=== PATIENT | male | born 1940 | race Caucasian/White ===

== ENCOUNTER 2017-06-27 01:11 | Emergency (ER) | payer MEDICARE, MEDICAID ==
[~2017-06-27 01:11] MED LIST: ASPI-605 PO; ATOR80TA PO; BENA40TA2 PO; BLOO-129 IN; DOCU250C30 PO; ERGO500014 PO; ESCI10TA PO; ESOM40CA PO; EZET10TA14 PO; FLUT12AE15 IH; INSU100V7 SQ; KETO5DRO83 EACHEYE; METO5SOL20 PO; OMEG1CAP55 PO; PRED5DRO17 EACHEYE; SOLI5TAB2 PO; TAMS-12 PO
--- NOTE | 2017-06-27 03:39 | NUR ---
ER MD ROJO AWARE OF BP VS, OK TO D/C.
[2017-06-27 03:41] VITALS: BP 178/89
== END 2017-06-27 03:43 | disposition home or self-care (01) ==
LOC: ER 01:14
DX: R04.0 Epistaxis (principal); E11.9 Type 2 diabetes mellitus without complications; E78.5 Hyperlipidemia, unspecified; F32.9 Major depressive disorder, single episode, unspecified; I10 Essential (primary) hypertension; I25.10 Atherosclerotic heart disease of native coronary artery without angina pectoris; N40.0 Benign prostatic hyperplasia without lower urinary tract symptoms; Z79.82 Long term (current) use of aspirin; Z79.4 Long term (current) use of insulin
CPT/HCPCS: A4606; Z7610

== ENCOUNTER 2018-09-15 08:29 | Inpatient (IN) | payer MEDICARE, MEDICAID ==
[~2018-09-15] VITALS: Ht 167.6 cm; Wt 68.0 kg
[~2018-09-15 08:29] MED LIST changes: -BENA40TA2 PO; +BENA40TA8 PO
[2018-09-15 08:49] LABS: BASOPHILS % (AUTO) 0.2 % (0.0-2.0); EOSINOPHILS % (AUTO) 1.4 % (0.0-6.0); HEMATOCRIT 41 % (39-51); HEMOGLOBIN 13.8 g/dL (13.5-17.5); LYMPHOCYTES # (AUTO) 0.9 /CMM (0.8-4.8); LYMPHOCYTES % (AUTO) 6.4 % (20.0-44.0); MEAN CORPUSCULAR HGB CONC 34 g/dl (31.0-36.0); MEAN CORPUSCULAR VOLUME 88 fL (80-96); MONOCYTES # (AUTO) 0.7 /CMM (0.1-1.30); MONOCYTES % (AUTO) 5.4 % (2.0-12.0); NEUTROPHILS # (AUTO) 11.6 /CMM (1.8-8.9); NEUTROPHILS % (AUTO) 86.6 % (43.0-81.0); PLATELET COUNT (AUTO) 222 /CMM (150-450); RED BLOOD CELL COUNT(AUTO) 4.64 MIL/uL (4.5-6.0); WHITE BLOOD COUNT (AUTO) 13.3 K/uL (4.3-11.0)
--- NOTE | 2018-09-15 08:50 | NUR ---
patient presented to the ER c/o altered than usuall and generalized weakness. on room air, breathing evenly and unlabored. connected to the monitor and pulse ox. kept comfortable, will continue to monitor accordingly.
[2018-09-15] MEDS ORDERED: IV NS 0.9% 500 ML BAG IV ONE (09:00)
[2018-09-15] MEDS ORDERED: CEFTRIAXONE 1GM BAG (ER ONLY) 1 GM/50 ML PIGGYBACK IV ONE (09:00)
[2018-09-15] MEDS ORDERED: CEFTRIAXONE 1GM BAG (ER ONLY) 50 ML IV ONE (09:01)
--- NOTE | 2018-09-15 09:04 | NUR ---
YACHT HAND/MED RECON PATIENT AND FAMILY UNABLE TO PROVIDE UPDATED INFO RE: HOME MEDICATION. PHARAMACY OF CHOICE IS CLOSED TODAY. FAMILY WILL BRING MEDICATION SUPPLY FROM HOME LATER.
[2018-09-15 09:15] LABS: APPEARANCE,URINE Clear (CLEAR); BILIRUBIN,URINE Negative (NEGATIVE); BLOOD, URINE Small Ery/uL (NEGATIVE); COLOR,URINE Yellow (YELLOW); KETONES,URINE 40 (NEGATIVE); LEUKOCYTE ESTERASE ,URINE Negative (NEGATIVE); NITRITE, URINE Negative (NEGATIVE); PROTEIN,URINE 100 mg/dl (NEGATIVE); UGLUCOSE 100 MG/DL mg/dL (NEGATIVE); UROBILINOGEN,URINE 0.2 EU/dL (0.2)
[2018-09-15 09:20] LABS: CALCIUM, SERUM 8.7 mg/dL (8.5-10.1); CARBON DIOXIDE 27 mmol/L (21-32); CHLORIDE 98 mmol/L (98-107); CREATININE 0.8 mg/dL (0.6-1.3); GLUCOSE 207 mg/dL (74-106); POTASSIUM 3.8 mmol/L (3.5-5.1); SODIUM SERUM 133 mmol/L (136-145); UREA NITROGEN, BLOOD 18 mg/dL (7-18)
[2018-09-15 09:22] LABS: BACTERIA,URINE Rare /HPF (None Seen); SQUAMOUS EPITHELIAL CELL,UR Few /HPF (None Seen); WBC,URINE NONE SEEN /HPF (0-3)
--- NOTE | 2018-09-15 09:22 | NUR ---
REMA AYON NP ON-CALL. AWAITING FOR CALL BACK.
[2018-09-15 09:26] LABS: ALANINE AMINOTRANSFERASE 21 U/L (12-78); ALBUMIN 3.3 g/dL (3.4-5.0); ALKALINE PHOSPHATASE 98 U/L (46-116); ASPARTATE AMINOTRANSFERASE 13 U/L (15-37); BILIRUBIN,DIRECT 0.2 mg/dL (0.0-0.2); TOTAL PROTEIN, SERUM 7.3 g/dL (6.4-8.2)
--- NOTE | 2018-09-15 10:00 | NUR ---
PATIENT GOING TO ROOM 104
[2018-09-15] MEDS ORDERED: MAGNESIUM HYDROXIDE 30 ML UDC PO PRN (10:30)
[2018-09-15] MEDS ORDERED: MAG HYDROX/AL HYDROX/SIMETH 30 ML UDC PO PRN (10:30)
[2018-09-15] MEDS ORDERED: ZOLPIDEM TARTRATE 5 MG TABLET PO PRN (10:30)
[2018-09-15] MEDS ORDERED: ONDANSETRON HCL/PF 4 MG/2 ML VIAL IVP PRN (10:30)
[2018-09-15] MEDS ORDERED: CLONIDINE HCL 0.1 MG TABLET PO PRN (10:30)
[2018-09-15] MEDS ORDERED: Z GUARD REMEDY 2 OZ OINT TP PRN (10:30)
[2018-09-15] MEDS ORDERED: ACETAMINOPHEN 325 MG TABLET PO PRN ×2 (10:30→11:30)
[2018-09-15] MEDS ORDERED: DEXTROSE 50%-WATER 50 ML DISP.SYRIN IV PRN (10:30)
[2018-09-15] MEDS ORDERED: HYDROCODONE/APAP 5/325MG 1 EACH TABLET PO PRN (10:30)
[2018-09-15] MEDS ORDERED: MORPHINE SULFATE INJ 2 MG/ML DISP.SYRIN IV PRN (10:30)
[2018-09-15] MEDS ORDERED: CEFTRIAXONE 1 G in IV D5W 50 ML IV SCH (11:00)
[2018-09-15] MEDS ORDERED: ACETAMINOPHEN 650 MG/20.3 ML UDC NG ONE (11:00)
[2018-09-15] MEDS ORDERED: ACETAMINOPHEN 325 MG TABLET ONE (11:11)
[2018-09-15] MEDS ORDERED: ONDANSETRON HCL/PF - ER 4 MG/2 ML VIAL IV ONE (11:30)
--- NOTE | 2018-09-15 11:30 | NUR ---
wheeled patient via acls protocol accompanied by son and , RN and emt in no apparent distress noted. Bibiana JAMIL at bedside to assume care.
[2018-09-15 12:00] VITALS: BP 146/57
--- NOTE | 2018-09-15 12:00 | NUR ---
BRICK CHIMNEY SUPERVISOR NOTE RECEIVED PATIENT FROM ER WITH DX AMS PATIENT, ALERT ABLE TO UNDERSTANDS IN SERBIAN , FAMILY AT BEDSIDE, HOSPITAL ORIENTATION DONE , VS TAKEN ,STARTED ON IVF ORDERED , PLAN OF CARE DISUSED WITH PATIENT , HL ON LT HAND INTACT , NO SOB NOTED, WILL CONT TO MONITOR CLOSELY
[2018-09-15 12:12] VITALS: BP 146/57
[2018-09-15] MEDS: IV NS 0.9% 1,000 ML IV PRN ×2 (12:16→23:09)
[2018-09-15] MEDS: INSULIN REGULAR, HUMAN 100 UNIT/ML 3 ML VIAL SQ PRN ×2 (12:23→17:22)
[2018-09-15] MEDS: BLOOD SUGAR DIAGNOSTIC 1 EACH STRIP VI SCH ×3 (12:58→22:32)
[2018-09-15] MEDS: ENOXAPARIN SODIUM 40 MG/0.4 ML DISP.SYRIN SQ SCH (13:00)
--- NOTE | 2018-09-15 15:00 | NUR ---
TELE RNNNOTE ASSISTED TO BSC A ABLE TO MAKE BM , KEEP CLEAN DRY , CALL LIGHT WITHIN REACH ,
[2018-09-15 16:00] VITALS: BP 149/63
[2018-09-15] MEDS ORDERED: ASPI-605 PO (17:53)
[2018-09-15] MEDS ORDERED: DOCU250C30 PO (17:53)
[2018-09-15] MEDS ORDERED: ERGO500014 PO (17:53)
[2018-09-15] MEDS ORDERED: PRED5DRO17 EACHEYE (17:53)
[2018-09-15] MEDS ORDERED: OMEG1CAP55 PO (17:53)
[2018-09-15] MEDS ORDERED: ATOR80TA PO (17:53)
[2018-09-15] MEDS ORDERED: CLOP75TA15 PO (17:53)
[2018-09-15] MEDS ORDERED: SOLI5TAB2 PO (17:53)
[2018-09-15] MEDS ORDERED: ESCI10TA PO (17:53)
[2018-09-15] MEDS ORDERED: INSU100I26 SQ (17:53)
[2018-09-15] MEDS ORDERED: EVOL140S SQ (17:53)
[2018-09-15] MEDS ORDERED: TAMS-12 PO (17:53)
[2018-09-15] MEDS ORDERED: INSU100V11 SQ (17:53)
[2018-09-15] MEDS ORDERED: ESOM40CA PO (17:53)
[2018-09-15] MEDS ORDERED: METO5SOL20 PO (17:53)
--- NOTE | 2018-09-15 18:51 | NUR ---
TSA SCREENER NOTE NEW HL ON RT FA VIOLA 22 INSERTED WITH GOOD BLOOD RETURN , CONT ON IVF ORDERED, AT BEDSIDE
[2018-09-15 20:00] VITALS: BP 140/74
[2018-09-15] MEDS: *INSULIN REGULAR(HUMULIN R)HUM 100 UNIT/ML VIAL SQ PRN (22:33)
[2018-09-16] VITALS (8 sets, daily range): BP systolic 124–163; BP diastolic 59–77
--- NOTE | 2018-09-16 00:23 | NUR ---
TELE/RN OPENING NOTES PT RECEIVED FROM LOULOU PINTO. TO ASLEEP, OPENS EYES TO NAME. ON ROOM AIR, BREATHING EVEN AND UNLABORED. DENIES SOB AND PAIN, IN NO ACUTE DISTRESS. ON TELE MONITOR, SR WITH HR 75. IV TO LEFT HAND RUNNING IVF ORDERED. BED IN LOW/LOCKED POSITION WITH CALL LIGHT IN REACH. SIDE RAILS UP X2 AND BED ALARM ON FOR SAFETY. WILL CONTINUE TO MONITOR
--- NOTE | 2018-09-16 02:42 | NUR ---
TELE/RN NOTES PT ROUNDS PERFORMED. PT ASLEEP, BREATHING EVEN AND UNLABORED. IN NO ACUTE DISTRESS. WILL CONTINUE TO MONITOR
[2018-09-16 06:26] LABS: BASOPHILS % (AUTO) 0.1 % (0.0-2.0); EOSINOPHILS % (AUTO) 0.8 % (0.0-6.0); HEMATOCRIT 37 % (39-51); HEMOGLOBIN 12.7 g/dL (13.5-17.5); LYMPHOCYTES # (AUTO) 1.3 /CMM (0.8-4.8); LYMPHOCYTES % (AUTO) 9.4 % (20.0-44.0); MEAN CORPUSCULAR HGB CONC 34 g/dl (31.0-36.0); MEAN CORPUSCULAR VOLUME 89 fL (80-96); MONOCYTES # (AUTO) 0.9 /CMM (0.1-1.30); NEUTROPHILS # (AUTO) 11.3 /CMM (1.8-8.9); NEUTROPHILS % (AUTO) 82.7 % (43.0-81.0); PLATELET COUNT (AUTO) 185 /CMM (150-450); WHITE BLOOD COUNT (AUTO) 13.6 K/uL (4.3-11.0)
[2018-09-16 06:27] LABS: ALANINE AMINOTRANSFERASE 20 U/L (12-78); ALBUMIN 2.9 g/dL (3.4-5.0); ALKALINE PHOSPHATASE 78 U/L (46-116); ASPARTATE AMINOTRANSFERASE 17 U/L (15-37); BILIRUBIN,TOTAL 1.1 mg/dL (0.2-1.0); CALCIUM, SERUM 8.5 mg/dL (8.5-10.1); CARBON DIOXIDE 24 mmol/L (21-32); CHLORIDE 100 mmol/L (98-107); CREATININE 0.8 mg/dL (0.6-1.3); GLUCOSE 286 mg/dL (74-106); MAGNESIUM 1.8 mg/dL (1.8-2.4); PHOSPHORUS 2.4 mg/dL (2.5-4.9); POTASSIUM 3.9 mmol/L (3.5-5.1); SODIUM SERUM 136 mmol/L (136-145); TOTAL PROTEIN, SERUM 6.7 g/dL (6.4-8.2); UREA NITROGEN, BLOOD 17 mg/dL (7-18)
[2018-09-16 06:38] LABS: CHOLESTEROL 129 mg/dL (<200); HDL CHOLESTEROL 58 mg/dL (40-60); LDL 58 mg/dL (0-99); TRIGLYCERIDES 93 mg/dL (30-150)
--- NOTE | 2018-09-16 06:40 | NUR ---
TELE/RN CLOSING NOTES PT ASLEEP, OPENS EYES SPONTANEOUSLY. REMAINS ON ROOM AIR, BREATHIGN EVEN AND UNLABORED. IN NO ACUTE DISTRESS. ON TELE MONITOR SHOWING SR 76. NO S/S OF SOB OR PAIN NOTED. IV TO RIGHT HAND PATENT AND INTACT RUNNING IVF ORDERED. NO SIGNIFICANT CHANGES OVERNIGHT. ALL DUE MEDS GIVEN. BED REMAINS IN LOW/LOCKED POSITION WITH CALL LIGHT IN REACH. SIDE RAILS UPX3 WITH BED ALARM ON FOR SAFETY. WILL ENDORSE TO DAY SHIFT RN MIRANDA.
[2018-09-16] MEDS: INSULIN REGULAR, HUMAN 100 UNIT/ML 3 ML VIAL SQ PRN ×3 (07:12→17:25)
[2018-09-16] MEDS: BLOOD SUGAR DIAGNOSTIC 1 EACH STRIP VI SCH ×4 (07:12→21:54)
--- NOTE | 2018-09-16 07:20 | NUR ---
RN OPENING NOTE RECEIVED PATIENT AWAKE AND ALERT. CAN ONLY SPEAK BOTSWANAN, UNDERSTANDS SOME BASIC ICELANDIC. PATIENT AMBULATED TO THE BATHROOM WITH ASSIST. ON TELE MONITOR SR 70'S. SKIN INTACT, WAS ADMITTED YESTERDAY WITH A CHIEF COMPLAINT OF WEAKNESS AND FEVER. HAS A RIGHT HAND #18 WITH NS RUNNING AT 100ML/HR. PT EVAL FOR TODAY. NO COMPLAINS OF ANY PAIN OR SOB AT THIS TIME. PATIENT ON ROOM AIR. BED ON LOW POSITION. CALL LIGHT WITHIN REACH. WILL CONTINUE TO MONITOR PATIENT CLOSELY
[2018-09-16] MEDS: ASPIRIN 81 MG TAB.CHEW PO SCH (08:49)
[2018-09-16] MEDS: CEFTRIAXONE 1 G in IV D5W 50 ML IV SCH (08:49)
[2018-09-16] MEDS: IV NS 0.9% 1,000 ML IV PRN ×2 (08:51→21:47)
[2018-09-16] MEDS ORDERED: NEUTRA PHOS 1 POWD.PACKET PO ONE (11:00)
[2018-09-16] MEDS: ENOXAPARIN SODIUM 40 MG/0.4 ML DISP.SYRIN SQ SCH (11:04)
[2018-09-16] MEDS: OXYBUTYNIN CHLORIDE 5 MG TABLET PO SCH ×2 (12:42→16:03)
--- NOTE | 2018-09-16 12:45 | NUR ---
RN NOTE PATIENT AWAKE AND ALERT. EATING 100% FOR BREAKFAST AND LUNCH. INSULIN COVERAGE GIVEN FOR 0730 AND 1200 ACCUCHECKS. FAMILY AT BEDSIDE.
[2018-09-16] MEDS ORDERED: Medication Not On Formulary EA (Omega-3 Acid Ethyl Esters (Lovaza) 1 GM) PO SCH (13:00)
[2018-09-16] MEDS: prednisoLONE ACETATE 1% SUSP 5 ML BOTTLE EACHEYE SCH (16:03)
[2018-09-16] MEDS: DOCUSATE SODIUM 250 MG CAPSULE PO SCH (16:03)
--- NOTE | 2018-09-16 18:49 | NUR ---
RN CLOSING NOTES PATIENT AWAKE, FAMILY ON BEDSIDE. REMAINS ON ROOM AIR, BREATHING EVEN AND UNLABORED. NO COMPLAINS OF ANY ACUTE DISTRESS. ON TELE MONITOR SHOWING SR 70'S. NO S/S OF SOB OR PAIN NOTED. IV TO RIGHT HAND PATENT AND INTACT IVF RUNNING AT 100ML/HR ORDERED. NO SIGNIFICANT CHANGES DURING DAY SHIFT. ALL MEDS GIVEN, INSULIN COVERAGE GIVEN. BED REMAINS IN LOW/LOCKED POSITION WITH CALL LIGHT IN REACH. PT CAME TO SEE PATIENT FOR EVAL, STATES PATIENT CAN AMBULATE WITH ASSIST AND CAN USE THE WALKER FOR ASSISTANCE. BED ALARM ON FOR SAFETY, PATIENT TENDS TO STAND UP WITHOUT USING THE CALL LIGHT. WILL ENDORSE TO SALES SUPPORT REPRESENTATIVE RN FOR MIRANDA.
--- NOTE | 2018-09-16 19:30 | NUR ---
TELERN RECEIVED FULLY AWAKE, TURKMEN SPEAKING. NO COMPLAINTS MADE. GOOD FAMILY SUPPORT. NO NEEDS FOR NOW. PRESENT IVF INFUSING WELL. PROVIDED PRIVACY.
[2018-09-16] MEDS: *INSULIN REGULAR(HUMULIN R)HUM 100 UNIT/ML VIAL SQ PRN (21:57)
[2018-09-16] MEDS ORDERED: TAMSULOSIN 0.4 MG CAP.SR.24H PO SCH (22:00)
[2018-09-16] MEDS ORDERED: METOCLOPRAMIDE HCL 10 MG TABLET PO SCH (22:00)
--- NOTE | 2018-09-16 22:00 | NUR ---
TELERN BS WAS 261, COVERAGE GIVEN SQ PER SLIDING SCALE. NO NEEDS FOR NOW.
--- NOTE | 2018-09-16 23:30 | NUR ---
TELERN ENDORSED TO INCOMING RN FOR CONTINUITY OF CARE.
[2018-09-17] VITALS: BP 150/68
--- NOTE | 2018-09-17 | NUR ---
RN INITIAL NOTE RECEIVED REPORT FROM LOUISA. PATIENT AWAKE AND ALERT. CAN ONLY SPEAK ALBANIAN, UNDERSTANDS SOME BASIC SETSWANA. PATIENT AMBULATED TO THE BATHROOM WITH ASSIST. ON TELE MONITOR SR 70'S. SKIN INTACT. PT HAS A RIGHT HAND #18 WITH NS RUNNING AT 100ML/HR. NO COMPLAINS OF ANY PAIN OR SOB AT THIS TIME. PATIENT ON ROOM AIR. BED ON LOW POSITION. CALL LIGHT WITHIN REACH. WILL CONTINUE TO MONITOR PATIENT CLOSELY
[2018-09-17 06:00] VITALS: BP 153/59
[2018-09-17 06:36] LABS: BASOPHILS % (AUTO) 0.3 % (0.0-2.0); HEMATOCRIT 37 % (39-51); HEMOGLOBIN 13.1 g/dL (13.5-17.5); LYMPHOCYTES # (AUTO) 1.3 /CMM (0.8-4.8); LYMPHOCYTES % (AUTO) 12.6 % (20.0-44.0); MEAN CORPUSCULAR HGB CONC 35 g/dl (31.0-36.0); MEAN CORPUSCULAR VOLUME 86 fL (80-96); MONOCYTES # (AUTO) 0.8 /CMM (0.1-1.30); MONOCYTES % (AUTO) 7.6 % (2.0-12.0); NEUTROPHILS # (AUTO) 8.2 /CMM (1.8-8.9); NEUTROPHILS % (AUTO) 77.5 % (43.0-81.0); PLATELET COUNT (AUTO) 177 /CMM (150-450); RED BLOOD CELL COUNT(AUTO) 4.31 MIL/uL (4.5-6.0); WHITE BLOOD COUNT (AUTO) 10.6 K/uL (4.3-11.0)
[2018-09-17 06:51] LABS: CALCIUM, SERUM 8.7 mg/dL (8.5-10.1); CARBON DIOXIDE 22 mmol/L (21-32); CHLORIDE 100 mmol/L (98-107); CREATININE 0.8 mg/dL (0.6-1.3); GLUCOSE 316 mg/dL (74-106); POTASSIUM 3.7 mmol/L (3.5-5.1); SODIUM SERUM 136 mmol/L (136-145); UREA NITROGEN, BLOOD 14 mg/dL (7-18)
--- NOTE | 2018-09-17 06:55 | NUR ---
RN CLOSING NOTES PATIENT SLEEP. REMAINS ON ROOM AIR, BREATHING EVEN AND UNLABORED. NO COMPLAINS OF ANY ACUTE DISTRESS. ON TELE MONITOR SHOWING SR 70'S. NO S/S OF SOB OR PAIN NOTED. IV TO RIGHT HAND PATENT AND INTACT IVF RUNNING AT 100ML/HR ORDERED. NO SIGNIFICANT CHANGES DURING DAY SHIFT. ALL MEDS GIVEN, BED REMAINS IN LOW/LOCKED POSITION WITH CALL LIGHT IN REACH. BED ALARM ON FOR SAFETY. WILL ENDORSE TO AM SHIFT RN FOR MIRANDA.
--- NOTE | 2018-09-17 07:30 | NUR ---
RN AM SHIFT NOTE PATIENT IN BED ALERT ORIENTED THAI SPEAKING. IV PATENT AND INTACT, AMBULATORY WITH ASSIST TO BATHROOM. BLOOD SUGAR MANAGED WITH MEDICATION PER MD ORDER, FAMILY AT BEDSIDE. VITALS STABLE, LABS IMPROVED. CONT TO MONITOR
[2018-09-17 08:00] VITALS: BP 166/77
[2018-09-17] MEDS: BLOOD SUGAR DIAGNOSTIC 1 EACH STRIP VI SCH ×2 (08:04→11:44)
[2018-09-17] MEDS: prednisoLONE ACETATE 1% SUSP 5 ML BOTTLE EACHEYE SCH (08:55)
[2018-09-17] MEDS: OXYBUTYNIN CHLORIDE 5 MG TABLET PO SCH ×2 (08:55→12:41)
[2018-09-17] MEDS: ASPIRIN 81 MG TAB.CHEW PO SCH (08:55)
[2018-09-17] MEDS: DOCUSATE SODIUM 250 MG CAPSULE PO SCH (08:55)
[2018-09-17] MEDS: CEFTRIAXONE 1 G in IV D5W 50 ML IV SCH (08:56)
[2018-09-17] MEDS ORDERED: CLOPIDOGREL BISULFATE 75 MG TABLET PO SCH (09:00)
[2018-09-17] MEDS: *INSULIN REGULAR(HUMULIN R)HUM 100 UNIT/ML VIAL SQ PRN (09:00)
[2018-09-17] MEDS ORDERED: ASPIRIN EC 81 MG TABLET.DR PO SCH (09:00)
[2018-09-17] MEDS ORDERED: ESCITALOPRAM OXALATE (10 MG) 10 MG TABLET PO SCH (09:00)
[2018-09-17] MEDS: ENOXAPARIN SODIUM 40 MG/0.4 ML DISP.SYRIN SQ SCH (10:20)
[2018-09-17 12:00] VITALS: BP 143/61
[2018-09-17 12:15] VITALS: BP 146/70
[2018-09-17] MEDS: IV NS 0.9% 1,000 ML IV PRN (15:02)
--- NOTE | 2018-09-17 15:41 | NUR ---
RN D/C NOTE MD SAW PATIENT , CONDITION STABLE FOR DISCHARGE. FAMILY AT BEDSIDE, AND AWARE. WILL D/C TO HOME. CONT TO MONITOR UNTIL D/C SAFETY PRECATUTIONS IN PLACE.
[2018-09-17 16:00] VITALS: BP 152/78
[2018-09-17] MEDS ORDERED: ATORVASTATIN 40 MG TABLET PO SCH (22:00)
[2018-09-22] MEDS ORDERED: ERGOCALCIFEROL (VITAMIN D 2) 50,000 UNIT CAPSULE PO SCH (09:00)
== END 2018-09-17 16:50 | disposition home or self-care (01) | DRG 871 ==
LOC: ER 08:31 → TELE 10:04 → TELE1 10:14 → MEDSG1 09-17 12:36
PROVIDERS: ADMIT Nurse Practitioner Acute Care; ATTEND Nurse Practitioner Acute Care
DX: A41.9 Sepsis, unspecified organism (principal); G93.41 Metabolic encephalopathy; E87.1 Hypo-osmolality and hyponatremia; K21.9 Gastro-esophageal reflux disease without esophagitis; I25.10 Atherosclerotic heart disease of native coronary artery without angina pectoris; Z86.73 Personal history of transient ischemic attack (TIA), and cerebral infarction without residual deficits; I10 Essential (primary) hypertension; Z79.4 Long term (current) use of insulin; N40.0 Benign prostatic hyperplasia without lower urinary tract symptoms; Z95.5 Presence of coronary angioplasty implant and graft; F32.9 Major depressive disorder, single episode, unspecified; E10.9 Type 1 diabetes mellitus without complications
CPT/HCPCS: 36415; 70450-TC; 71045-TC; 80048-TC; 80053-TC; 80061-TC; 80076-TC; 81000-TC; 82962-TC; 83605-TC; 83735-TC; 84100-TC; 84484-TC; 85025-TC; 85730-TC; 87040-TC; 87081-TC; 87086-TC; 87400; A6402; G0378; J0696; J1650; J1815; J2405; J3490; J7030; J7040; J7060; J8597

== ENCOUNTER 2019-02-05 16:45 | Inpatient (IN) | payer MEDICARE, MEDICAID ==
[~2019-02-05] VITALS: Ht 170.2 cm; Wt 65.8 kg
[~2019-02-05 16:45] MED LIST changes: -BENA40TA8 PO; -BLOO-129 IN; +CLOP75TA15 PO; +EVOL140S SQ; -EZET10TA14 PO; -FLUT12AE15 IH; +INSU100I26 SQ; +INSU100V11 SQ; -INSU100V7 SQ; -KETO5DRO83 EACHEYE
--- NOTE | 2019-02-05 17:15 | NUR ---
BIB RA FROM HOME, ALTERED MENTAL STATUS,NORMALLY KNOWS PRESIDENT, LKWT YESTERDAY, BLOOD SUGAR 295. PT AWAKE, NON VERBAL, OBEYS COMMAND, RR EVEN & UNLABORED. HX OF STROKES PER FAMILY. NO ARMS/LEGS DRIFTING. SKIN INTACT WARM & DRY. NO FACIAL GRIMMACING NOTED. NAD NOTED @ THIS TIME. EVAL'D BY DR. PRASAD, PLACED ON IN HOME SALES CONSULTANT, SR NO ECTOPY NOTED. WILL CONT TO MONITOR & FAMILY @ BS.
[2019-02-05] MEDS ORDERED: IV NS 0.9% 500 ML BAG IV ONE (17:30)
--- NOTE | 2019-02-05 17:36 | NUR ---
PT TO CT VIA [facility].
[2019-02-05 17:58] LABS: BASOPHILS % (AUTO) 0.2 % (0.0-2.0); EOSINOPHILS % (AUTO) 0.1 % (0.0-6.0); HEMATOCRIT 35 % (39-51); HEMOGLOBIN 11.9 g/dL (13.5-17.5); LYMPHOCYTES # (AUTO) 1.1 /CMM (0.8-4.8); LYMPHOCYTES % (AUTO) 6.8 % (20.0-44.0); MEAN CORPUSCULAR HGB CONC 34 g/dl (31.0-36.0); MEAN CORPUSCULAR VOLUME 88 fL (80-96); MONOCYTES % (AUTO) 5.9 % (2.0-12.0); NEUTROPHILS # (AUTO) 14.6 /CMM (1.8-8.9); PLATELET COUNT (AUTO) 177 /CMM (150-450); RED BLOOD CELL COUNT(AUTO) 3.97 MIL/uL (4.5-6.0); WHITE BLOOD COUNT (AUTO) 16.8 K/uL (4.3-11.0)
[2019-02-05 18:43] LABS: CALCIUM, SERUM 8.7 mg/dL (8.5-10.1); CARBON DIOXIDE 27 mmol/L (21-32); CHLORIDE 102 mmol/L (98-107); CREATININE 0.9 mg/dL (0.6-1.3); GLUCOSE 113 mg/dL (74-106); POTASSIUM 3.4 mmol/L (3.5-5.1); SODIUM SERUM 138 mmol/L (136-145); THYROID STIMULATING HORMONE 0.579 uIU/mL (0.358-3.74); UREA NITROGEN, BLOOD 18 mg/dL (7-18)
[2019-02-05 18:49] LABS: ALANINE AMINOTRANSFERASE 17 U/L (12-78); ALKALINE PHOSPHATASE 73 U/L (46-116); ASPARTATE AMINOTRANSFERASE 11 U/L (15-37); BILIRUBIN,DIRECT 0.2 mg/dL (0.0-0.2); TOTAL PROTEIN, SERUM 6.9 g/dL (6.4-8.2)
[2019-02-05] MEDS ORDERED: ONDANSETRON HCL/PF 4 MG/2 ML VIAL IV ONE (19:00)
[2019-02-05] MEDS ORDERED: ONDANSETRON HCL/PF 4 MG/2 ML VIAL ONE ×2 (19:08→20:49)
--- NOTE | 2019-02-05 19:16 | NUR ---
PT C/O NAUSEA, MEDICATED PER ERMD ORDER, PT CHRIS WELL.
--- NOTE | 2019-02-05 19:19 | NUR ---
ALTERED MENTAL STATUS, TELE
[2019-02-05 19:35] LABS: BILIRUBIN,URINE Negative (NEGATIVE); BLOOD, URINE Moderate Ery/uL (NEGATIVE); COLOR,URINE Yellow (YELLOW); KETONES,URINE Negative (NEGATIVE); LEUKOCYTE ESTERASE ,URINE Trace (NEGATIVE); NITRITE, URINE Positive (NEGATIVE); PH,URINE 7.5 (5.0-8.0); PROTEIN,URINE 30 mg/dl (NEGATIVE); UGLUCOSE 100 MG/DL mg/dL (NEGATIVE)
[2019-02-05 19:44] LABS: APPEARANCE,URINE SLIGHTLY CLOUDY (CLEAR)
[2019-02-05 19:45] LABS: BACTERIA,URINE Many /HPF (None Seen); SQUAMOUS EPITHELIAL CELL,UR Few /HPF (None Seen); WBC,URINE 21-50 /HPF (0-3)
[2019-02-05] MEDS ORDERED: CEFTRIAXONE 1GM BAG (ER ONLY) 1 GM/50 ML PIGGYBACK IV ONE (20:00)
[2019-02-05] MEDS ORDERED: IV NS 0.9% 1,000 ML IV PRN (20:18)
[2019-02-05] MEDS ORDERED: ZOLPIDEM TARTRATE 5 MG TABLET PO PRN (20:30)
[2019-02-05] MEDS ORDERED: MAG HYDROX/AL HYDROX/SIMETH 30 ML UDC PO PRN (20:30)
[2019-02-05] MEDS ORDERED: HYDROCODONE/APAP 5/325MG 1 EACH TABLET PO PRN (20:30)
[2019-02-05] MEDS ORDERED: MAGNESIUM HYDROXIDE 30 ML UDC PO PRN (20:30)
[2019-02-05] MEDS ORDERED: MORPHINE SULFATE INJ 2 MG/ML DISP.SYRIN IV PRN (20:30)
[2019-02-05] MEDS ORDERED: ONDANSETRON HCL/PF 4 MG/2 ML VIAL IVP PRN (20:30)
[2019-02-05] MEDS ORDERED: DEXTROSE 50%-WATER 50 ML DISP.SYRIN IV PRN (20:30)
[2019-02-05] MEDS ORDERED: POTASSIUM CHLORIDE 20 MEQ TAB.PRT.SR PO ONE ×2 (20:30→23:45)
[2019-02-05] MEDS ORDERED: ACETAMINOPHEN 325 MG TABLET PO PRN (20:30)
[2019-02-05] MEDS ORDERED: CEFTRIAXONE 1GM BAG (ER ONLY) 50 ML IV ONE (20:35)
[2019-02-05] MEDS ORDERED: ONDANSETRON HCL/PF 4 MG/2 ML VIAL IV STA (20:48)
[2019-02-05] MEDS ORDERED: KETOROLAC TROMETHAMINE INJ 30 MG/ML VIAL IV STA (21:10)
[2019-02-05] MEDS ORDERED: KETOROLAC TROMETHAMINE 15 MG/ML VIAL ONE (21:22)
[2019-02-05] MEDS ORDERED: IV NS 0.9% 1,000 ML BAG IV ONE (21:30)
[2019-02-05] MEDS: BLOOD SUGAR DIAGNOSTIC 1 EACH STRIP VI SCH (22:00)
--- NOTE | 2019-02-05 22:17 | NUR ---
REPORT GIVEN TO LOULOU EWING FOR MIRANDA.
[2019-02-05 22:25] VITALS: BP 148/52
--- NOTE | 2019-02-05 22:25 | NUR ---
FARM BOSS NOTES 78 YAERS OLD. MALE PATIENT ADMITTED TO TELE UNIT WITH THE DX OF UTI. PATIENT NOTED WITH NO S/S OF ACUTE DISTRESS, RESPIRATION EVEN AND UNLABORED. NO SOB NOTED, PATIENT ON O2, 2LPM VIA NASAL CANULA, SATURATING 98%. PATIENT A/O X2, WITH PERIODS OF CONFUSION AND DISORIENTATION, AND SONS AT THE BED SIDE, NO S/S OF PAIN NOTED AT THIS TIME. PATIENT ON TELE MONITORING WITH SR. LAC 20 GAUGE, NOTED WITH NO S/S OF INFECTION, INFILTRATION. SAFETY MAINTAINED, BED AT THE LOWEST, LOCKED POSITION. CALL LIGHT WITHIN REACH. WILL CONTINUE TO MONITOR RESIDENT PER PLAN OF CARE.
[2019-02-05] MEDS: TAMSULOSIN 0.4 MG CAP.SR.24H PO SCH (23:45)
[2019-02-05] MEDS: OXYBUTYNIN CHLORIDE 5 MG TABLET PO SCH (23:45)
[2019-02-05] MEDS: METOCLOPRAMIDE HCL 10 MG TABLET PO SCH (23:45)
[2019-02-05] MEDS: INSULIN GLARGINE, 100 UNIT/ML CARTRIDGE SQ SCH (23:51)
[2019-02-05] MEDS: *INSULIN REGULAR(HUMULIN R)HUM 100 UNIT/ML VIAL SQ PRN (23:52)
[2019-02-06] VITALS: BP_SYST 136; BP_SYST 148; BP_DIAS 52; BP_DIAS 67
[2019-02-06 04:00] VITALS: BP 114/62
[2019-02-06 06:31] LABS: BASOPHILS % (AUTO) 0.1 % (0.0-2.0); HEMATOCRIT 38 % (39-51); HEMOGLOBIN 12.8 g/dL (13.5-17.5); LYMPHOCYTES # (AUTO) 1.2 /CMM (0.8-4.8); LYMPHOCYTES % (AUTO) 5.7 % (20.0-44.0); MEAN CORPUSCULAR HGB CONC 33 g/dl (31.0-36.0); MEAN CORPUSCULAR VOLUME 89 fL (80-96); MONOCYTES # (AUTO) 1.2 /CMM (0.1-1.30); MONOCYTES % (AUTO) 5.8 % (2.0-12.0); NEUTROPHILS # (AUTO) 18.1 /CMM (1.8-8.9); NEUTROPHILS % (AUTO) 88.4 % (43.0-81.0); PLATELET COUNT (AUTO) 167 /CMM (150-450); RED BLOOD CELL COUNT(AUTO) 4.32 MIL/uL (4.5-6.0); WHITE BLOOD COUNT (AUTO) 20.5 K/uL (4.3-11.0)
--- NOTE | 2019-02-06 07:04 | NUR ---
SEMICONDUCTOR ENGINEER NOTES PATIENT IN BED, RESTING COMFORTABLY AT THIS TIME. PATIENT NOTED WITH NO S/S OF ACUTE DISTRESS, RESPIRATION EVEN AND UNLABORED. NO SOB NOTED, PATIENT ON O2, 2LPM VIA NASAL CANULA, SATURATING 98%. NO S/S OF PAIN NOTED AT THIS TIME. PATIENT ON TELE MONITORING WITH SR. LAC 20 GAUGE, NOTED WITH NO S/S OF INFECTION, INFILTRATION. SAFETY MAINTAINED, BED AT THE LOWEST, LOCKED POSITION. CALL LIGHT WITHIN REACH. WILL ENDORSE TO AM SHIFT NURSE FOR MIRANDA.
[2019-02-06 07:17] LABS: ALANINE AMINOTRANSFERASE 15 U/L (12-78); ALBUMIN 2.8 g/dL (3.4-5.0); ALKALINE PHOSPHATASE 77 U/L (46-116); ASPARTATE AMINOTRANSFERASE 11 U/L (15-37); BILIRUBIN,TOTAL 1.2 mg/dL (0.2-1.0); CALCIUM, SERUM 8.4 mg/dL (8.5-10.1); CARBON DIOXIDE 22 mmol/L (21-32); CHLORIDE 101 mmol/L (98-107); CREATININE 0.9 mg/dL (0.6-1.3); GLUCOSE 227 mg/dL (74-106); MAGNESIUM 1.5 mg/dL (1.8-2.4); PHOSPHORUS 1.8 mg/dL (2.5-4.9); POTASSIUM 4.1 mmol/L (3.5-5.1); SODIUM SERUM 135 mmol/L (136-145); TOTAL PROTEIN, SERUM 6.8 g/dL (6.4-8.2); UREA NITROGEN, BLOOD 16 mg/dL (7-18)
[2019-02-06] MEDS: INSULIN GLARGINE, 100 UNIT/ML CARTRIDGE SQ SCH ×2 (07:33→16:45)
--- NOTE | 2019-02-06 07:40 | NUR ---
J2EE CONSULTANT OPENING NOTES RECEIVED REPORT FROM PM NURSE.PATIENT IN BED,CONFUSED. TRYING TO GET OUT OF BED .SOLUTIONS DELIVERY CONSULTANT AT BEDSIDE. PATIENT NOTED WITH TACHYPNEIC, RESPIRATION EVEN. PATIENT ON O2, 2LPM VIA NASAL CANULA, SATURATING 96%. C/O MILD PAIN R UPPER ABDOMEN. PATIENT ON TELE MONITOR WITH SR HR 82. LAC 20 GAUGE, NOTED WITH NO S/S OF INFECTION, INFILTRATION WITH IVF. SAFETY MAINTAINED, BED AT THE LOWEST, LOCKED POSITION. CALL LIGHT WITHIN REACH.SRX3 WILL CONTINUE TO MONITOR.
[2019-02-06] MEDS: BLOOD SUGAR DIAGNOSTIC 1 EACH STRIP VI SCH ×4 (07:58→21:25)
[2019-02-06] MEDS: PANTOPRAZOLE 40 MG TABLET.DR PO SCH (07:58)
[2019-02-06 08:00] VITALS: BP 145/62
[2019-02-06] MEDS: INSULIN REGULAR, HUMAN 100 UNIT/ML 3 ML VIAL SQ PRN ×3 (08:08→16:46)
[2019-02-06] MEDS: ASPIRIN EC 81 MG TABLET.DR PO SCH (09:00)
[2019-02-06] MEDS: CLOPIDOGREL BISULFATE 75 MG TABLET PO SCH (09:00)
[2019-02-06] MEDS: DOCUSATE SODIUM 100 MG CAPSULE PO SCH ×2 (09:00→16:33)
[2019-02-06] MEDS ORDERED: Medication Not On Formulary EA (Omega-3 Acid Ethyl Esters (Lovaza) 1 GM) PO SCH (09:00)
[2019-02-06] MEDS: ESCITALOPRAM OXALATE (10 MG) 10 MG TABLET PO SCH (09:00)
[2019-02-06] MEDS: OXYBUTYNIN CHLORIDE 5 MG TABLET PO SCH ×2 (09:00→16:33)
[2019-02-06] MEDS: prednisoLONE ACETATE 1% SUSP 5 ML BOTTLE EACHEYE SCH ×2 (09:01→16:38)
[2019-02-06] MEDS ORDERED: Magnesium 1GM/D5W 100ML PREMIX PIGGYBACK IV ONE (10:00)
--- NOTE | 2019-02-06 10:00 | NUR ---
RN NOTE 0900-PATIENT IS DIAPHORETIC,TACHYPNEIC.DENIES ANY CHEST PAIN.C/O PAIN IN THE R SIDE OF THE CHEST.BRUNO MOCK MADE AWARE.SEEN BY BRUNO MOCK,UPDATE PATIENT CONDITION.GOT NEW ORDERS,STAT EKG STAT TROPIN.EKG RESULT RELAYED TO CARSON AND BRUNO MOCK.NNO.SEEN BY GOT NEW ORDERS.
[2019-02-06] MEDS ORDERED: ASPIRIN 81 MG TAB.CHEW PO SCH (10:30)
[2019-02-06] MEDS ORDERED: NITROGLYCERIN 0.4 MG/TAB BOTTLE SL PRN (10:30)
[2019-02-06] MEDS ORDERED: MGSO4/D5W 100 ML IV SCH (10:30)
[2019-02-06] MEDS: LOSARTAN POTASSIUM 50 MG TABLET PO SCH (10:43)
[2019-02-06] MEDS: NEUTRA PHOS 1 POWD.PACKET PO SCH ×2 (10:43→18:03)
[2019-02-06] MEDS: CARVEDILOL 3.125 MG TABLET PO SCH ×2 (10:43→21:18)
[2019-02-06] MEDS ORDERED: Magnesium 1GM/D5W 100ML PREMIX 100 ML IV SCH ×3 (11:00→13:00)
[2019-02-06] MEDS ORDERED: PIPERACILLIN /TAZOBACTAM 3.375 G in IV D5W 50 ML IV ONE (11:00)
[2019-02-06] MEDS: ENOXAPARIN SODIUM 80 MG/0.8 ML DISP.SYRIN SQ SCH ×2 (12:55→21:22)
--- NOTE | 2019-02-06 13:00 | NUR ---
RN NOTE GOT CALL FROM LAB TROPONIN IS [phone].RELAYED RESULT TO BRUNO MOCK AND GOT NEW ORDER TO START ON LOVENOX AND CONTINUE PLAVIX.PATIENT IS STABLE.CONTINUE TO MONITOR FOR RESPIRATORY STATUS.
[2019-02-06 16:00] VITALS: BP 135/54
[2019-02-06] MEDS: Z GUARD REMEDY 2 OZ OINT TP PRN (16:33)
[2019-02-06] MEDS: PIPERACILLIN /TAZOBACTAM 3.375 G in IV D5W 100 ML IV SCH (16:36)
--- NOTE | 2019-02-06 18:06 | NUR ---
Spoke with daughter Cheryl [phone]. Patient speaks Greek. He lives with his spouse locally in an apartment.Prior to admission - he was ambulating with cane or walker at times. He owns a cane, walker and shower chair. Daughter Cheryl is his IHSS provider and primary caregiver. Patient receives 120hrs/month IHSS. Was on homehealth services in the past but family cannot recall the name of the agency. His pcp is locates in [place], family does not remember name and contact info. Current dc plan is to return home. Family will provide ride. Addendum: 02/06/19 at 1806 by LIZETH DE GUZMAN RN Amended: Links added.
--- NOTE | 2019-02-06 19:20 | NUR ---
MS/RN NOTES PATIENT IN BED, RESTING COMFORTABLY AT THIS TIME. PATIENT NOTED WITH NO S/S OF ACUTE DISTRESS, RESPIRATION EVEN AND UNLABORED. NO SOB NOTED, PATIENT ON O2, 2LPM VIA NASAL CANULA, SATURATING 98%. PATIENT A/O X 2, DENIES ANY PAIN AT THIS TIME. FAMILY AT BED SIDE. LAC 20 GAUGE, NOTED WITH NO S/S OF INFECTION, INFILTRATION, RUNNING WITH NS @75ML/HR. SAFETY MAINTAINED, BED AT THE LOWEST, LOCKED POSITION. SITTER AT THE BED SIDE. CALL LIGHT WITHIN REACH. WILL CONTINUE TO MONITOR PATIENT PER PLAN OF CARE.
--- NOTE | 2019-02-06 19:31 | NUR ---
MS RN CLOSING NOTES PATIENT IN BED,AXOX1 .HOME TEACHING GRADES 9 THRU 12 TEACHER AT BEDSIDE. PATIENT COMFORTABLE.FAMILY AT BEDSIDE. PATIENT ON O2, 2LPM VIA NASAL CANULA, SATURATING 98%. C/O MILD PAIN R UPPER CHEST. LAC 20 GAUGE, NOTED WITH NO S/S OF INFECTION, INFILTRATION . SAFETY MAINTAINED, BED AT THE LOWEST, LOCKED POSITION. CALL LIGHT WITHIN REACH.SRX3 ENDORSED TO PM NURSE FOR MIRANDA.
--- NOTE | 2019-02-06 19:35 | NUR ---
MS/RN NOTED PATIENT NOTED WITH BILATERAL LOWER ABDOMEN, PROTRUDING MASS. NON-TENDER TO TOUCH, SOFT TO TOUCH. PATIENT DENIES ANY PAIN . WILL CONTINUE TO MONITOR.
--- NOTE | 2019-02-06 19:48 | NUR ---
MS/RN NOTES CALLED DR LICONA AT THIS TIME RELAYED PATIENT CURRENT CONDITION, VS WITH NEW ORDER TO DO KUB STAT. NOTED AND CARRIED OUT.
[2019-02-06] MEDS ORDERED: CEFTRIAXONE 1 G in IV D5W 50 ML IV SCH (20:00)
[2019-02-06] MEDS: METOCLOPRAMIDE HCL 10 MG TABLET PO SCH (21:18)
[2019-02-06] MEDS: TAMSULOSIN 0.4 MG CAP.SR.24H PO SCH (21:18)
[2019-02-06] MEDS: ATORVASTATIN 40 MG TABLET PO SCH (21:18)
[2019-02-06] MEDS: *INSULIN REGULAR(HUMULIN R)HUM 100 UNIT/ML VIAL SQ PRN (21:24)
--- NOTE | 2019-02-06 22:42 | NUR ---
MS/RN NOTES CALLED DR LICONA AT THIS TIME RELAYED PATIENT CURRENT CONDITION, VS WITH NEW ORDER TO DO KUB STAT. NOTED AND CARRIED OUT. Addendum: 02/06/19 at 0824 by REGINA CARROLL RN PLEASE DISREGARD
[2019-02-07] VITALS (20 sets, daily range): BP systolic 100–177; BP diastolic 42–103
[2019-02-07] MEDS: PIPERACILLIN /TAZOBACTAM 3.375 G in IV D5W 100 ML IV SCH ×3 (00:25→16:25)
--- NOTE | 2019-02-07 01:34 | NUR ---
PATIENT TROPONIN LEVELS ARE TRENDING DOWN, LABS CALLED EARLIER WITH RESULT OF 0.460. DR LICONA MADE AWARE WITH NO NEW ORDER
[2019-02-07] MEDS: INSULIN GLARGINE, 100 UNIT/ML CARTRIDGE SQ SCH ×2 (06:41→16:51)
--- NOTE | 2019-02-07 07:00 | NUR ---
MS/RN NOTES PATIENT IN BED, RESTING COMFORTABLY AT THIS TIME. PATIENT NOTED WITH NO S/S OF ACUTE DISTRESS, RESPIRATION EVEN AND UNLABORED. NO SOB NOTED, PATIENT ON O2, 2LPM VIA NASAL CANULA, SATURATING 98%. DENIES ANY PAIN AT THIS TIME. LAC 20 GAUGE, NOTED WITH NO S/S OF INFECTION, INFILTRATION. ALL DUE MEDS GIVEN ORDERED, PATIENT TOLERATED WELL. SAFETY MAINTAINED, BED AT THE LOWEST, LOCKED POSITION. SITTER AT THE BED SIDE. CALL LIGHT WITHIN REACH. WILL ENDORSE TO AM SHIFT NURSE FOR MIRANDA
[2019-02-07 07:13] LABS: BASOPHILS % (AUTO) 0.1 % (0.0-2.0); EOSINOPHILS % (AUTO) 0.7 % (0.0-6.0); HEMATOCRIT 33 % (39-51); HEMOGLOBIN 11.2 g/dL (13.5-17.5); LYMPHOCYTES % (AUTO) 8.6 % (20.0-44.0); MEAN CORPUSCULAR HGB CONC 35 g/dl (31.0-36.0); MEAN CORPUSCULAR VOLUME 87 fL (80-96); MONOCYTES # (AUTO) 0.5 /CMM (0.1-1.30); MONOCYTES % (AUTO) 4.7 % (2.0-12.0); NEUTROPHILS # (AUTO) 9.8 /CMM (1.8-8.9); NEUTROPHILS % (AUTO) 85.9 % (43.0-81.0); PLATELET COUNT (AUTO) 144 /CMM (150-450); RED BLOOD CELL COUNT(AUTO) 3.73 MIL/uL (4.5-6.0); WHITE BLOOD COUNT (AUTO) 11.4 K/uL (4.3-11.0)
[2019-02-07 07:24] LABS: ALANINE AMINOTRANSFERASE 18 U/L (12-78); ALBUMIN 2.4 g/dL (3.4-5.0); ALKALINE PHOSPHATASE 70 U/L (46-116); ASPARTATE AMINOTRANSFERASE 13 U/L (15-37); CALCIUM, SERUM 7.9 mg/dL (8.5-10.1); CARBON DIOXIDE 25 mmol/L (21-32); CHLORIDE 100 mmol/L (98-107); GLUCOSE 158 mg/dL (74-106); MAGNESIUM 1.8 mg/dL (1.8-2.4); PHOSPHORUS 2.1 mg/dL (2.5-4.9); POTASSIUM 3.6 mmol/L (3.5-5.1); SODIUM SERUM 136 mmol/L (136-145); TOTAL PROTEIN, SERUM 6.3 g/dL (6.4-8.2); UREA NITROGEN, BLOOD 15 mg/dL (7-18)
[2019-02-07] MEDS: PANTOPRAZOLE 40 MG TABLET.DR PO SCH (07:30)
[2019-02-07 08:01] LABS: ABG BASE EXCESS -6.5 mmol/L; ABG OXYGEN SATURATION 93.9 % (92.0-98.5); ABG PCO2 40.7 mmHg (35.0-45.0); ABG PH 7.299 (7.350-7.450); ABG PO2 81.4 mmHg (75.0-100.0); AaDO2 446.3 mmHg; COHb 0.7 % (0.5-1.5); MetHb 0.3 % (0.0-1.5); SITE, ABG Right Radial; VENT MODE, BG NRB
--- NOTE | 2019-02-07 08:09 | NUR ---
patient on respiratory distress,desaturating on 80%,deep suctioning done,keep on high back rest,keep npo,md notified abg result realyed and obtained orders transfer to icu and start on bipap.
[2019-02-07] MEDS ORDERED: MORPHINE SULFATE INJ 2 MG/ML DISP.SYRIN IV PRN (08:30)
--- NOTE | 2019-02-07 08:30 | NUR ---
received pt from [facility], respiratory failure s/t to aspiration, lethargic, HR 144, on non rebreather at 15L, sat 92%, BP stable, pt is going to be placed on bipap, Dilshad at the bedside.
--- NOTE | 2019-02-07 08:35 | NUR ---
PATIENT REC'D FROM [facility] UNIT IN RESP DISTRESS. PATIENT PLACED ON BIPAP WITH SETTINGS ORDERED BY BRUNO MOCK. ALARMS CHECKED + AUDIBLE. PATIENT MOANING AND NOT FOLLOWING COMMANDS AT THIS TIME. WILL CONT TO MONITOR CLOSELY. Addendum: 02/07/19 at 0945 by ANJUM REYNOSO RT Amended: Links added.
[2019-02-07] MEDS ORDERED: MORPHINE SULFATE INJ 4 MG/ML DISP.SYRIN IV PRN (08:44)
[2019-02-07] MEDS: BLOOD SUGAR DIAGNOSTIC 1 EACH STRIP VI SCH ×4 (08:57→22:32)
[2019-02-07] MEDS: ESCITALOPRAM OXALATE (10 MG) 10 MG TABLET PO SCH (09:00)
[2019-02-07] MEDS: LOSARTAN POTASSIUM 50 MG TABLET PO SCH (09:00)
[2019-02-07] MEDS: CARVEDILOL 3.125 MG TABLET PO SCH ×2 (09:00→21:56)
[2019-02-07] MEDS: CLOPIDOGREL BISULFATE 75 MG TABLET PO SCH (09:00)
[2019-02-07] MEDS: DOCUSATE SODIUM 100 MG CAPSULE PO SCH ×2 (09:00→16:20)
[2019-02-07] MEDS: OXYBUTYNIN CHLORIDE 5 MG TABLET PO SCH ×2 (09:00→16:20)
[2019-02-07] MEDS: ASPIRIN EC 81 MG TABLET.DR PO SCH (09:00)
--- NOTE | 2019-02-07 09:15 | NUR ---
pt is on bipap at 100% fi02, lethargic, sat well, SR, BP stable, no pain, PO meds not given because pt is on bipap and still lethargic.
[2019-02-07] MEDS ORDERED: POTASSIUM PHOSPHATE MM 15 MMOL in IV D5W 250 ML IV SCH (09:30)
[2019-02-07] MEDS: prednisoLONE ACETATE 1% SUSP 5 ML BOTTLE EACHEYE SCH ×2 (09:30→16:21)
[2019-02-07] MEDS: POTASSIUM PHOSPHATE MM 7.5 MMOL in IV D5W 100 ML IV SCH ×2 (10:14→12:41)
[2019-02-07] MEDS: INSULIN REGULAR, HUMAN 100 UNIT/ML 3 ML VIAL SQ PRN (11:12)
[2019-02-07] MEDS ORDERED: FUROSEMIDE 40 MG/4 ML VIAL IV ONE ×3 (13:00→19:00)
--- NOTE | 2019-02-07 16:14 | NUR ---
pt is resting is resting in the bed, drowsy/lethargic, SR, on bipap, sat well, lungs congested, tachypneic,diaper on, family refused Rossi, v/s stable, no pain, pt cleaned and changed.
[2019-02-07] MEDS: *INSULIN REGULAR(HUMULIN R)HUM 100 UNIT/ML VIAL SQ PRN (16:54)
[2019-02-07] MEDS: ENOXAPARIN SODIUM 80 MG/0.8 ML DISP.SYRIN SQ SCH (17:35)
--- NOTE | 2019-02-07 20:00 | NUR ---
Received patient alert and follows simple commands.Pakistani speaking with ED T,spool cleaner hand Acts as regulatory compliance engineer.Patient soaking wet with urine.Patient and agreed to have Rossi Catheter.Orders received from Janae CARR for FC.Inserted by ED T. without difficulty draining clear yellow urine.Kept clean and dry.Bed bath rendered.Complete linens changed.Patient verbalized feels better.Care explained and safety precaution maintained.Bed low,locked, side rails up and bed alarm on.Call light at bedside.Continue monitoring.
--- NOTE | 2019-02-07 20:15 | NUR ---
RT NOTE PATIENT RECEIVED ON BIPAP 15/, 12, 40%. PATIENT AWAKE/ALERT. MASK SECURED WITH MEPILEX. NO SOB NOTED. ALAMRS ON AND AUDIBLE. VENT PLUGGED TO RED OUTLET. WILL CONTINUE TO MONITOR. Addendum: 02/07/19 at 2016 by MELVIN GRAFF RT Amended: Links added.
[2019-02-07] MEDS ORDERED: MEROPENEM 1 G VIAL IV ONE (21:46)
[2019-02-07] MEDS: METOCLOPRAMIDE HCL 10 MG TABLET PO SCH (21:56)
[2019-02-07] MEDS: ATORVASTATIN 40 MG TABLET PO SCH (21:56)
[2019-02-07] MEDS: TAMSULOSIN 0.4 MG CAP.SR.24H PO SCH (21:56)
[2019-02-07] MEDS: MEROPENEM 1 G in IV NS 0.9% 100 ML IV SCH (21:57)
[2019-02-07] MEDS ORDERED: IV NS 0.9% 250 ML IV PRN (22:00)
--- NOTE | 2019-02-07 22:20 | NUR ---
Patient awake vs remains stable.Tele monitoring reading SR.Tolerating BIPAP.No respiratory Distress noted.Family at bedside visiting.PO medications administered well tolerated.
[2019-02-08] VITALS (29 sets, daily range): BP systolic 82–146; BP diastolic 41–91
--- NOTE | 2019-02-08 03:00 | NUR ---
Patient confused trying to get out of bed pulled out BIPAP,BP cuff and trying to pull Rossi catheter out.Repositioned in bed and applied bilateral soft wrist restraints with orders.Safety precaution maintained.
[2019-02-08] MEDS ORDERED: MEROPENEM 1 G VIAL IV ONE (04:32)
[2019-02-08 04:35] LABS: BASOPHILS % (AUTO) 0.1 % (0.0-2.0); EOSINOPHILS % (AUTO) 0.2 % (0.0-6.0); HEMATOCRIT 35 % (39-51); HEMOGLOBIN 12.2 g/dL (13.5-17.5); LYMPHOCYTES # (AUTO) 0.9 /CMM (0.8-4.8); LYMPHOCYTES % (AUTO) 11.7 % (20.0-44.0); MEAN CORPUSCULAR HGB CONC 35 g/dl (31.0-36.0); MEAN CORPUSCULAR VOLUME 86 fL (80-96); MONOCYTES # (AUTO) 0.6 /CMM (0.1-1.30); MONOCYTES % (AUTO) 7.6 % (2.0-12.0); NEUTROPHILS % (AUTO) 80.4 % (43.0-81.0); PLATELET COUNT (AUTO) 184 /CMM (150-450); RED BLOOD CELL COUNT(AUTO) 4.04 MIL/uL (4.5-6.0); WHITE BLOOD COUNT (AUTO) 7.4 K/uL (4.3-11.0)
[2019-02-08 04:53] LABS: CALCIUM, SERUM 8.3 mg/dL (8.5-10.1); CARBON DIOXIDE 26 mmol/L (21-32); CHLORIDE 100 mmol/L (98-107); GLUCOSE 166 mg/dL (74-106); MAGNESIUM 1.8 mg/dL (1.8-2.4); PHOSPHORUS 2.4 mg/dL (2.5-4.9); POTASSIUM 3.1 mmol/L (3.5-5.1); SODIUM SERUM 138 mmol/L (136-145); UREA NITROGEN, BLOOD 21 mg/dL (7-18)
[2019-02-08] MEDS: MEROPENEM 1 G in IV NS 0.9% 100 ML IV SCH ×3 (05:03→20:21)
--- NOTE | 2019-02-08 06:30 | NUR ---
Patient remains confused.VS stable.Tolerating BIPAP.SR.AM care done.Denies pain or sob. Safety precaution maintained.Will endorse to day shift for continuity of care.Call light at BS.
[2019-02-08] MEDS ORDERED: POTASSIUM PHOSPHATE MM 15 MMOL in IV D5W 250 ML IV SCH (07:00)
[2019-02-08] MEDS: PANTOPRAZOLE 40 MG TABLET.DR PO SCH (07:30)
[2019-02-08] MEDS: FUROSEMIDE 40 MG/4 ML VIAL IV SCH ×3 (07:44→15:25)
[2019-02-08] MEDS: POTASSIUM CL. PREMIX PERIPHER. 50 ML IV SCH ×4 (07:44→10:55)
[2019-02-08] MEDS: INSULIN GLARGINE, 100 UNIT/ML CARTRIDGE SQ SCH ×2 (07:45→17:29)
[2019-02-08] MEDS: BLOOD SUGAR DIAGNOSTIC 1 EACH STRIP VI SCH ×4 (07:46→21:24)
--- NOTE | 2019-02-08 08:17 | NUR ---
received pt from shift mechanic, alert, follows commands, on bipap, sat well, f/c good output, NPO, v/s stable, no pain, pt turns and repositions by himself.
[2019-02-08] MEDS: DOCUSATE SODIUM 100 MG CAPSULE PO SCH ×2 (08:31→17:27)
[2019-02-08] MEDS: ASPIRIN EC 81 MG TABLET.DR PO SCH (08:31)
[2019-02-08] MEDS: LOSARTAN POTASSIUM 50 MG TABLET PO SCH (08:31)
[2019-02-08] MEDS: OXYBUTYNIN CHLORIDE 5 MG TABLET PO SCH ×2 (08:32→17:27)
[2019-02-08] MEDS: CARVEDILOL 3.125 MG TABLET PO SCH ×2 (08:32→20:21)
[2019-02-08] MEDS: ENOXAPARIN SODIUM 80 MG/0.8 ML DISP.SYRIN SQ SCH ×2 (08:33→20:22)
[2019-02-08] MEDS: CLOPIDOGREL BISULFATE 75 MG TABLET PO SCH (08:38)
[2019-02-08] MEDS: prednisoLONE ACETATE 1% SUSP 5 ML BOTTLE EACHEYE SCH ×2 (08:39→17:31)
[2019-02-08] MEDS: ESCITALOPRAM OXALATE (10 MG) 10 MG TABLET PO SCH (08:39)
[2019-02-08] MEDS: POTASSIUM PHOSPHATE MM 7.5 MMOL in IV D5W 100 ML IV SCH ×2 (08:40→11:31)
[2019-02-08] MEDS: INSULIN REGULAR, HUMAN 100 UNIT/ML 3 ML VIAL SQ PRN (11:25)
--- NOTE | 2019-02-08 17:05 | NUR ---
pt is resting in the bed, alert, follows commands, SR, on 4L 02 sat well, good urine output, v/s stable, no pain, pt cleaned and changed.
[2019-02-08] MEDS: *INSULIN REGULAR(HUMULIN R)HUM 100 UNIT/ML VIAL SQ PRN (17:30)
--- NOTE | 2019-02-08 19:45 | NUR ---
RN PT RECEIVED FROM, AM SHIFT, PT AWAKE, ALERT, FOLLOW COMMAND, RESTING IN BED, AT BEDSIDE, ON NC 4L O2, F/C IN PLACE, PT DENIES PAIN , PT ABLE TO TURN AND REPOSITION HIMSELF, NO SOB NOTED. WILL CONTINUE TO MONITOR
[2019-02-08] MEDS: TAMSULOSIN 0.4 MG CAP.SR.24H PO SCH (21:23)
[2019-02-08] MEDS: ATORVASTATIN 40 MG TABLET PO SCH (21:24)
[2019-02-08] MEDS: METOCLOPRAMIDE HCL 10 MG TABLET PO SCH (21:24)
[2019-02-09] VITALS (19 sets, daily range): BP systolic 88–121; BP diastolic 35–79
[2019-02-09] MEDS: MEROPENEM 1 G in IV NS 0.9% 100 ML IV SCH ×3 (04:10→21:58)
[2019-02-09 04:25] LABS: BASOPHILS % (AUTO) 0.2 % (0.0-2.0); EOSINOPHILS % (AUTO) 1.9 % (0.0-6.0); HEMATOCRIT 37 % (39-51); HEMOGLOBIN 12.7 g/dL (13.5-17.5); LYMPHOCYTES # (AUTO) 1.4 /CMM (0.8-4.8); LYMPHOCYTES % (AUTO) 19.7 % (20.0-44.0); MEAN CORPUSCULAR HGB CONC 35 g/dl (31.0-36.0); MEAN CORPUSCULAR VOLUME 86 fL (80-96); MONOCYTES # (AUTO) 0.8 /CMM (0.1-1.30); NEUTROPHILS # (AUTO) 4.8 /CMM (1.8-8.9); NEUTROPHILS % (AUTO) 67.2 % (43.0-81.0); PLATELET COUNT (AUTO) 206 /CMM (150-450); RED BLOOD CELL COUNT(AUTO) 4.24 MIL/uL (4.5-6.0); WHITE BLOOD COUNT (AUTO) 7.1 K/uL (4.3-11.0)
[2019-02-09 05:19] LABS: ALBUMIN 2.6 g/dL (3.4-5.0); BILIRUBIN,TOTAL 0.8 mg/dL (0.2-1.0); TOTAL PROTEIN, SERUM 7.1 g/dL (6.4-8.2)
[2019-02-09 06:03] LABS: CALCIUM, SERUM 8.7 mg/dL (8.5-10.1); MAGNESIUM 1.9 mg/dL (1.8-2.4); PHOSPHORUS 2.9 mg/dL (2.5-4.9)
[2019-02-09] MEDS: INSULIN GLARGINE, 100 UNIT/ML CARTRIDGE SQ SCH ×2 (06:45→17:02)
[2019-02-09] MEDS: BLOOD SUGAR DIAGNOSTIC 1 EACH STRIP VI SCH ×4 (06:46→21:59)
--- NOTE | 2019-02-09 06:46 | NUR ---
LOULOU LANTUS AT 0700 NON ADMINISTERED, PT WITH NPO DIAGNOSE , BLOOD GLUCOSE LEVEL 96.
--- NOTE | 2019-02-09 06:50 | NUR ---
LOULOU THOMAS CAN TOP SETTER PAGED, POTASSIUM 3.0 , WAITING FOR CALL BACK
--- NOTE | 2019-02-09 07:20 | NUR ---
BURLAPPER INITIAL NOTES: Pt resting comfortably on his bed, sleeping easily arousable, not in any distress. On NC at 4lpm, sating at 100%. SR on telemonitor. IV line access on RFA G20 & L wrist G20, SL, both flushing well, patent & intact w/ no s/sx of infection/infiltration noted. Has FC draining to BSB w/ hakeem colored UOP. Pt is independent w/ bed mobility. Bed alarm on. Safety precaution in place w/ bed in lowest & locked pos. Call light placed w/in reach. Will cont to monitor & attend pt needs. 0800 Removed NC at this time, will monitor how pt will do w/o O2 support.
[2019-02-09] MEDS: PANTOPRAZOLE 40 MG TABLET.DR PO SCH (07:34)
--- NOTE | 2019-02-09 08:15 | NUR ---
Pt seen & examined by Nichole Neuro MIDDLE SCHOOL DIRECTOR, updated about pt condition.
[2019-02-09] MEDS: ESCITALOPRAM OXALATE (10 MG) 10 MG TABLET PO SCH (08:36)
[2019-02-09] MEDS: CARVEDILOL 3.125 MG TABLET PO SCH ×2 (08:40→22:03)
[2019-02-09] MEDS: DOCUSATE SODIUM 100 MG CAPSULE PO SCH ×2 (08:40→16:40)
[2019-02-09] MEDS: ASPIRIN EC 81 MG TABLET.DR PO SCH (08:41)
[2019-02-09] MEDS: CLOPIDOGREL BISULFATE 75 MG TABLET PO SCH (08:41)
[2019-02-09] MEDS: ENOXAPARIN SODIUM 40 MG/0.4 ML DISP.SYRIN SQ SCH (08:42)
[2019-02-09] MEDS: POTASSIUM CHLORIDE 20 MEQ TAB.PRT.SR PO SCH ×4 (08:49→12:55)
[2019-02-09] MEDS: LOSARTAN POTASSIUM 50 MG TABLET PO SCH (08:49)
[2019-02-09] MEDS: prednisoLONE ACETATE 1% SUSP 5 ML BOTTLE EACHEYE SCH ×2 (08:49→16:40)
[2019-02-09] MEDS: OXYBUTYNIN CHLORIDE 5 MG TABLET PO SCH ×2 (08:49→16:40)
[2019-02-09] MEDS: FUROSEMIDE 40 MG/4 ML VIAL IV SCH ×3 (08:51→16:40)
[2019-02-09] MEDS ORDERED: ERGOCALCIFEROL (VITAMIN D 2) 50,000 UNIT CAPSULE PO SCH (09:00)
--- NOTE | 2019-02-09 10:50 | NUR ---
Pt seen & examined by Dr. Montelongo.
--- NOTE | 2019-02-09 11:50 | NUR ---
Per Dr. Briggs, may downgrade pt to MADDIE.
[2019-02-09] MEDS: INSULIN REGULAR, HUMAN 100 UNIT/ML 3 ML VIAL SQ PRN ×2 (11:56→17:05)
--- NOTE | 2019-02-09 14:07 | NUR ---
Called Dr. Madden, agreed to downgrade pt to MADDIE & start pt on diet (pureed, cardiac).
--- NOTE | 2019-02-09 14:45 | NUR ---
ICU TRANSFER NOTES: Pt transferred to [facility] 104 via bed as ordered. Pt remains A/O x 2-3, not in any distress, denies any pain/discomfort. Remains SR on telemonitor. IV line access kept patent & intact w/ no s/sx of infection/infiltration noted. FC kept patent & intact draining to BSB w/ pale yellowish UOP. All belongings including meds sent w/ pt. Pt's dentures kept by . Safety & contact isolation precaution observed at all times. Endorsed to Esther JAMIL for MIRANDA.
--- NOTE | 2019-02-09 14:46 | NUR ---
MADDIE RN NOTES RECEIVED PT FROM ICU, AO X 2-3 ANGUILLAN SPEAKING, CHAIRFAST, ON 2L 02 NC, NO SOB, SR HR 76 ON TELE MONITOR, DENIES PAIN AT THIS TIME, LEFT WRIST G20 AND RFA G20 BOTH FLUSHES WELL, BOTH SITES CLEAR. ORDERED FOR CARDIAC PUREED DIET, KEBEDE CATH IN PLACE WITH CLEAR YELLOW COLORED URINE OUTPUT, INDEPENDENT OF BED MOBILITY, SAFETY MEASURES IN PLACE, BED LOW LOCKED, CALL LIGHT WITHIN REACH,NO BELONGINGS EXCEPT FOR UPPER AND LOWER DENTURES, AT BEDSIDE, ISOLATION PRECAUTION OBSERVED. WILL CONT TO MONITOR.
--- NOTE | 2019-02-09 18:53 | NUR ---
MADDIE RN NOTES ALL NEEDS MET. PT RESTING COMFORTABLY IN BED. CALL LIGHT WITHIN REACH. SAFETY MEASURES IN PLACE. WILL ENDORSE TO NEXT SHIFT FOR MIRANDA.
--- NOTE | 2019-02-09 19:30 | NUR ---
RN INITIAL SHIFT NOTES RECEIVED PATIENT IN BED, AWAKE, A/O X2-3 PER FAMILY MEMBERS, WHOM ARE TRANSLATING BOTSWANAN/FRISIAN FOR THE PATIENT, PATIENT ABLE TO VERBALIZE NEEDS, BUT IS LETHARGIC. PLAN OF CARE DISCUSSED WITH PATIENT AND FAMILY MEMBERS, ALL VERBALIZING UNDERSTANDING REGARDING THE PLAN OF CARE. BREATHING EVEN AND NONLABORED, TOLERATING O2 VIA NC @ 2LPM, TOLERATING WELL, NO SIGNS AND SYMPTOMS OF RESPIRATORY DISTRESS. PROBE OPERATOR READS SINUS RHYTHM, HR 74 BPM. KEBEDE CATHETER PATENT AND INTACT, DRAINING PALE YELLOW URINE VIA GRAVITY. CALL LIGHT LEFT WITHIN EASY REACH, BED IN LOWEST AND LOCKED POSITION.
--- NOTE | 2019-02-09 20:00 | NUR ---
RN NOTES JUDEEN FIELD TRAINING AGENT AT BEDSIDE FOR ID EVALUATION. ALL PERTINENT QUESTIONS ANSWERED BY FIELD TRAINING AGENT, WITH VERBALIZATION OF UNDERSTANDING FROM FAMILY MEMBERS
[2019-02-09] MEDS: TAMSULOSIN 0.4 MG CAP.SR.24H PO SCH (21:58)
[2019-02-09] MEDS: ATORVASTATIN 40 MG TABLET PO SCH (21:58)
[2019-02-09] MEDS: METOCLOPRAMIDE HCL 10 MG TABLET PO SCH (21:59)
[2019-02-09] MEDS: *INSULIN REGULAR(HUMULIN R)HUM 100 UNIT/ML VIAL SQ PRN (22:07)
[2019-02-10] VITALS: BP 121/59
--- NOTE | 2019-02-10 | NUR ---
INDUSTRIAL TECHNOLOGY EDUCATION TEACHER NOTES PATIENT RESTING IN BED, APPEARS COMFORTABLE. KISWAHILI SPEAKING STAFF AT BEDSIDE TO AID IN TRANSLATION. PATIENT DENIES ANY CHEST PAIN AT THIS TIME. WILL CONTINUE TO CLOSELY MONITOR
[2019-02-10 04:00] VITALS: BP 129/74
[2019-02-10] MEDS: MEROPENEM 1 G in IV NS 0.9% 100 ML IV SCH ×2 (04:33→12:16)
[2019-02-10 06:33] LABS: BASOPHILS % (AUTO) 0.3 % (0.0-2.0); EOSINOPHILS % (AUTO) 3.6 % (0.0-6.0); HEMATOCRIT 40 % (39-51); HEMOGLOBIN 14.1 g/dL (13.5-17.5); LYMPHOCYTES # (AUTO) 1.2 /CMM (0.8-4.8); MEAN CORPUSCULAR HGB CONC 35 g/dl (31.0-36.0); MEAN CORPUSCULAR VOLUME 87 fL (80-96); MONOCYTES # (AUTO) 1.1 /CMM (0.1-1.30); MONOCYTES % (AUTO) 12.1 % (2.0-12.0); NEUTROPHILS # (AUTO) 6.3 /CMM (1.8-8.9); PLATELET COUNT (AUTO) 230 /CMM (150-450); RED BLOOD CELL COUNT(AUTO) 4.64 MIL/uL (4.5-6.0); WHITE BLOOD COUNT (AUTO) 8.9 K/uL (4.3-11.0)
--- NOTE | 2019-02-10 06:39 | NUR ---
WOMEN'S MINISTRY DIRECTOR CLOSING NOTES PATIENT RESTING IN BED, NO ACUTE EVENTS THROUGHOUT THE SHIFT, APPEARS COMFORTABLE, DENIES PAIN. PATIENT NOTED TO INTERMITTENTLY TAKE OFF O2 VIA NC THROUGHOUT SHIFT, SATTING WELL EVEN WHEN O2 OFF. WILL CONTINUE TO CLOSELY MONITOR
[2019-02-10 06:41] LABS: ALANINE AMINOTRANSFERASE 31 U/L (12-78); ALBUMIN 2.8 g/dL (3.4-5.0); ALKALINE PHOSPHATASE 56 U/L (46-116); ASPARTATE AMINOTRANSFERASE 27 U/L (15-37); BILIRUBIN,TOTAL 0.7 mg/dL (0.2-1.0); CALCIUM, SERUM 8.9 mg/dL (8.5-10.1); CARBON DIOXIDE 34 mmol/L (21-32); CHLORIDE 101 mmol/L (98-107); CREATININE 1.1 mg/dL (0.6-1.3); GLUCOSE 99 mg/dL (74-106); MAGNESIUM 2.1 mg/dL (1.8-2.4); POTASSIUM 3.6 mmol/L (3.5-5.1); SODIUM SERUM 142 mmol/L (136-145); TOTAL PROTEIN, SERUM 7.5 g/dL (6.4-8.2); UREA NITROGEN, BLOOD 34 mg/dL (7-18)
--- NOTE | 2019-02-10 07:30 | NUR ---
RN NOTE: RECEIVED PATIENT IN BED, ASLEEP, BUT AROUSABLE WITH TACTILE STIMULI AND VERBAL CUE. RESPIRATION EVEN AND UNLABORED SATURATING 99% WITH O2 2L/MIN VIA NC. DENIED ANY PAIN INCLUDING NO CHEST PAIN. ON FILLING MIXER SR HR= 70. (L) WRIST AND (R) FOREARM IV SITE WERE BOTH FLUSHING WELL. HOB ELEVATED. ON CONTACT ISOLATION FOR ESBL URINE. PATIENT HAS KEBEDE CATHETER DRAINING TO GRAVITY WITH YELLOW URINE. PENDING SWALLOW AND PHYSICAL THERAPY EVALUATION. BED ALARMED AND LOCKED AT ALL TIMES. CALL LIGHT WITHIN REACH. NEEDS ANTICIPATED.
[2019-02-10 08:00] VITALS: BP 148/69
[2019-02-10] MEDS: BLOOD SUGAR DIAGNOSTIC 1 EACH STRIP VI SCH ×4 (08:15→21:53)
[2019-02-10] MEDS: INSULIN GLARGINE, 100 UNIT/ML CARTRIDGE SQ SCH ×2 (08:15→17:50)
[2019-02-10] MEDS: PANTOPRAZOLE 40 MG TABLET.DR PO SCH (08:22)
[2019-02-10] MEDS: DOCUSATE SODIUM 100 MG CAPSULE PO SCH ×2 (09:49→17:49)
[2019-02-10] MEDS: ESCITALOPRAM OXALATE (10 MG) 10 MG TABLET PO SCH (09:49)
[2019-02-10] MEDS: ASPIRIN EC 81 MG TABLET.DR PO SCH (09:49)
[2019-02-10] MEDS: OXYBUTYNIN CHLORIDE 5 MG TABLET PO SCH ×2 (09:49→17:49)
[2019-02-10] MEDS: CLOPIDOGREL BISULFATE 75 MG TABLET PO SCH (09:49)
[2019-02-10] MEDS: CARVEDILOL 3.125 MG TABLET PO SCH ×2 (09:51→21:50)
[2019-02-10] MEDS: ENOXAPARIN SODIUM 40 MG/0.4 ML DISP.SYRIN SQ SCH (09:51)
[2019-02-10] MEDS: LOSARTAN POTASSIUM 50 MG TABLET PO SCH (09:52)
[2019-02-10] MEDS: prednisoLONE ACETATE 1% SUSP 5 ML BOTTLE EACHEYE SCH ×2 (09:53→17:48)
[2019-02-10 12:00] VITALS: BP 108/56
[2019-02-10] MEDS: INSULIN REGULAR, HUMAN 100 UNIT/ML 3 ML VIAL SQ PRN ×2 (12:19→17:52)
[2019-02-10] MEDS: Z GUARD REMEDY 2 OZ OINT TP PRN (12:32)
--- NOTE | 2019-02-10 13:15 | NUR ---
RN NOTE: INFORMED CONSENT WAS SIGNED BY LUPE JASSO, REGARDING THE CT ANGIO HEART WITH 3D IMAGE. DR. ECHEVARRIA EXPLAINED THE RISKS AND BENEFITS OF THE TEST. HAD NO QUESTION REGARDING THE PROCEDURE. CALLED AND SPOKE WITH KAYLEE JACKSON, ADMINISTRATIVE PERSONAL ASSISTANT REGARDING THE PROCEDURE.
[2019-02-10] MEDS ORDERED: CT SWABBABLE VALVE TRANS SET 1 EA INFUS.SET MC ONE (15:35)
[2019-02-10] MEDS ORDERED: IOHEXOL-350 100 ML VIAL IV ONE (15:35)
[2019-02-10] MEDS ORDERED: IV NS 0.9% 250 ML IV ONE (15:36)
[2019-02-10 16:00] VITALS: BP 108/55
[2019-02-10] MEDS ORDERED: METOPROLOL TARTRATE INJ 5 MG/5 ML AMPUL ONE (16:00)
--- NOTE | 2019-02-10 16:00 | NUR ---
RN NOTE: PATIENT WAS BROUGHT TO RADIOLOGY DEPARTMENT FOR THE CT ANGIO HEART WITH 3D IMAGE (CTCA) PER ACLS PROTOCOL. PATIENT HAS A (R) AC 18 GAUGE FLUSHING WELL WITH GOOD BLOOD RETURN.
[2019-02-10] MEDS ORDERED: NITROGLYCERIN 0.4 MG/TAB BOTTLE ONE (16:08)
--- NOTE | 2019-02-10 16:30 | NUR ---
RN NOTE: PATIENT WAS RETURNED BACK TO THE UNIT VIA ACLS PROTOCOL AND REMAINED AWAKE, ALERT AND VERBALLY RESPONSIVE. PENDING RESULTS FOR THE CTCA. DR. ECHEVARRIA WAS PRESENT IN THE UNIT AND ACCORDING TO MD, HE WILL READ THE RESULT AND WILL INFORM Marcelo ALBRIGHT DNP. LUPE WAS INFORMED AND REMAINED PRESENT AT THE BEDSIDE.
--- NOTE | 2019-02-10 17:30 | NUR ---
RN NOTE: RECEIVED A PHONE CALL FROM Marcelo ALBRIGHT DNP AND HE WANTED TO SPEAK WITH THE PATIENT'S , LUPE REGARDING THE RESULT OF THE CTCA. A DETAILED EXPLANATION OF THE CTCA RESULT WAS EXPLAINED TO LUPE VIA A BARBADIAN SPEAKING STAFF (DAYTON REYES-SAW REPAIRER) BUT SHE SAID THAT "I DON'T THINK THERE WILL BE CHANGES IF PATIENT WILL BE KEPT OVERNIGHT." FURTHER EXPLANATION WAS PROVIDED BY Marcelo ALBRIGHT DNP AND LUPE WAS CONVINCED TO STAY. PER Marcelo ALBRIGHT DNP HE WANTED TO HOLD THE PATIENT'S DISCHARGE TONIGHT IN ORDER FOR THE MECHANICAL FITTER DR ECHEVARRIA TO SPEAK WITH THE PATIENT'S PCP AND MECHANICAL FITTER. LUPE AGREED TO IT.
--- NOTE | 2019-02-10 18:30 | NUR ---
RN NOTE: Marcelo ALBRIGHT DNP WENT TO THE UNIT AND PERSONALLY SPOKE WITH THE PATIENT'S LUPE AT THE BEDSIDE AND DISCUSSED WITH HER AGAIN REGARDING THE RESULT OF THE CTCA. BRICK AND BLOCKER AID LABOR DAYTON REYES TRANSLATED TO THE PATIENT'S LUPE, A PHONE CALL WAS MADE WITH THE PATIENT'S SON AND PER Marcelo ALBRIGHT DNP THE FAMILY DECIDED NO AGGRESSIVE TREATMENT FOR THE PATIENT SUCH OPEN HEART SURGERY. PER Marcelo ALBRIGHT DNP THE PATIENT WILL BE DISCHARGE BY TOMORROW MORNING TO HOME WITH THE HOME HEALTH OF CHOICE OF THE PATIENT. PATIENT REMAINED ON STABLE CONDITION AND DENIED CHEST PAIN. LUPE REMAINED AT THE BEDSIDE.
--- NOTE | 2019-02-10 19:36 | NUR ---
RN NOTE: BEDSIDE REPORT WAS GIVEN TO PM SHIFT NURSE FOR CONTINUITY OF CARE. PATIENT'S ANAIT WAS AT THE BEDSIDE AND PATIENT REMAINED ALERT, AWAKE AND VERBALLY RESPONSIVE. REMAINED ON CONTACT ISOLATION FOR ESBL URINE.
[2019-02-10 20:00] VITALS: BP 107/55
[2019-02-10] MEDS: METOCLOPRAMIDE HCL 10 MG TABLET PO SCH (21:50)
[2019-02-10] MEDS: ATORVASTATIN 40 MG TABLET PO SCH (21:50)
[2019-02-10] MEDS: TAMSULOSIN 0.4 MG CAP.SR.24H PO SCH (21:51)
[2019-02-10] MEDS: *INSULIN REGULAR(HUMULIN R)HUM 100 UNIT/ML VIAL SQ PRN (21:52)
[2019-02-11] VITALS: BP 112/42
[2019-02-11 04:00] VITALS: BP 135/61
--- NOTE | 2019-02-11 07:10 | NUR ---
FINE PATCHER OPENING NOTES RECEIVED PT LYING ON BED,ALERT.ORIENTED X3 WITH HONDURAN SPEAKING PT.ON TELE HR IS 70 WITH SR.ON NC 2 LPM O2 CONTINUOUSLY,NO SOB AND ACUTE DISTRESS NOTED.IV LINE IS ON LEFT WRIST G20,RIGHT FA G20,RIGHT AC G18,SITE IS CLEAN,DRY AND INTACT.NO INFILTRATION NOTED.BED IS IN LOW POSITION AND LOCKED,CALL LIGHT IS WITHIN REACH.WILL CONTINUE TO MONITOR THE PT CLOSELY.
--- NOTE | 2019-02-11 07:48 | NUR ---
LENS DOTTER NOTES BLOOD SUGAR CHECKED VIA FINGERSTICK,NOTED WITH 48.REPEATED THE TEST,IT IS 47.PT HAS NO S/S HYPOGLYCEMIA.OFFERED THE BREAKFAST AND ORANGE JUICE.HOLD THE INSULIN.CONTINUE TO MONITOR THE PT.
[2019-02-11] MEDS: INSULIN GLARGINE, 100 UNIT/ML CARTRIDGE SQ SCH (07:50)
[2019-02-11 08:00] VITALS: BP 141/63
[2019-02-11] MEDS: BLOOD SUGAR DIAGNOSTIC 1 EACH STRIP VI SCH ×2 (08:10→12:02)
[2019-02-11] MEDS: ESCITALOPRAM OXALATE (10 MG) 10 MG TABLET PO SCH (08:52)
[2019-02-11] MEDS: CLOPIDOGREL BISULFATE 75 MG TABLET PO SCH (08:52)
[2019-02-11] MEDS: LOSARTAN POTASSIUM 50 MG TABLET PO SCH (08:52)
[2019-02-11 08:53] VITALS: BP 141/63
[2019-02-11] MEDS: ASPIRIN EC 81 MG TABLET.DR PO SCH (08:53)
[2019-02-11] MEDS: CARVEDILOL 3.125 MG TABLET PO SCH (08:53)
[2019-02-11] MEDS: DOCUSATE SODIUM 100 MG CAPSULE PO SCH (08:53)
[2019-02-11] MEDS: PANTOPRAZOLE 40 MG TABLET.DR PO SCH (08:53)
[2019-02-11] MEDS: OXYBUTYNIN CHLORIDE 5 MG TABLET PO SCH (08:53)
[2019-02-11] MEDS: ENOXAPARIN SODIUM 40 MG/0.4 ML DISP.SYRIN SQ SCH (08:54)
[2019-02-11] MEDS: prednisoLONE ACETATE 1% SUSP 5 ML BOTTLE EACHEYE SCH (08:54)
--- NOTE | 2019-02-11 08:56 | NUR ---
SENIOR INTEGRATION DEVELOPER NOTES RECHECKED THE BLOOD SUGAR VIA FINGER STICK,IT IS 107.
[2019-02-11] MEDS: INSULIN REGULAR, HUMAN 100 UNIT/ML 3 ML VIAL SQ PRN ×2 (09:02→12:03)
--- NOTE | 2019-02-11 12:15 | NUR ---
MS RN NOTES ORDERED TO D/C KEBEDE CATHETER.D/C IT,CONTINUE TO MONITOR THE PT FOR THE URINE OUTPUT.
--- NOTE | 2019-02-11 15:00 | NUR ---
MS RN NOTES PT HAS URINE OUTPUT 200ML BY URINAL.NO PAIN NOTED.PT TOLERATED WELL.
--- NOTE | 2019-02-11 15:45 | NUR ---
MS HEADER SET UP OPERATOR NOTES PT IS DISCHARGED TO HOME WITH .ALL THE DISCHARGE MEDICATION AND FOLLOW UP APPOINTMENT DISCUSSED WITH THE PT AND AT BEDSIDE,VERBALIZED UNDERSTOOD.IV LINES ARE REMOVED.NO PAIN WHILE URINATING.ON ROOM AIR,SATURATING WELL.NO SOB AND ACUTE DISTRESS NOTED.PACKING MACHINE INSPECTOR ASSIST THE PT TO THE PARKING LOT VIA WHEELCHAIR,NO COMPLICATIONS NOTED.
[2019-02-11] MEDS ORDERED: CARVEDILOL 3.125 MG TABLET PO SCH (21:00)
[2019-02-12] MEDS ORDERED: LOSARTAN POTASSIUM 50 MG TABLET PO SCH (09:00)
== END 2019-02-11 15:45 | disposition home health service (06) | DRG 871 ==
LOC: ER 16:55 → TELE1 19:22 → MEDSG1 02-06 09:30 → TELE-TD 02-07 08:03 → ICU 02-07 08:13 → TELE-TD 02-09 14:35 → TELE1 02-10 10:40 → MEDSG1 02-11 11:31
PROVIDERS: ADMIT Nurse Practitioner Acute Care; ATTEND Nurse Practitioner Acute Care
PROC: 5A09357 Assistance with Respiratory Ventilation, Less than 24 Consecutive Hours, Continuous Positive Airway Pressure (ICD-10-PCS; principal; 2019-02-07)
DX: A41.9 Sepsis, unspecified organism (principal); J69.0 Pneumonitis due to inhalation of food and vomit; J96.01 Acute respiratory failure with hypoxia; I21.A1 Myocardial infarction type 2; I50.41 Acute combined systolic (congestive) and diastolic (congestive) heart failure; G92 Toxic encephalopathy; E44.1 Mild protein-calorie malnutrition; N39.0 Urinary tract infection, site not specified; Z86.73 Personal history of transient ischemic attack (TIA), and cerebral infarction without residual deficits; D63.8 Anemia in other chronic diseases classified elsewhere; E87.6 Hypokalemia; E88.09 Other disorders of plasma-protein metabolism, not elsewhere classified; Z68.22 Body mass index [BMI] 22.0-22.9, adult; E83.42 Hypomagnesemia; N40.1 Benign prostatic hyperplasia with lower urinary tract symptoms; K21.9 Gastro-esophageal reflux disease without esophagitis; F32.9 Major depressive disorder, single episode, unspecified; B96.20 Unspecified Escherichia coli [E. coli] as the cause of diseases classified elsewhere; Z16.12 Extended spectrum beta lactamase (ESBL) resistance; E83.39 Other disorders of phosphorus metabolism; E11.65 Type 2 diabetes mellitus with hyperglycemia; Z87.440 Personal history of urinary (tract) infections; I25.10 Atherosclerotic heart disease of native coronary artery without angina pectoris; Z95.5 Presence of coronary angioplasty implant and graft; Z79.4 Long term (current) use of insulin; Z79.82 Long term (current) use of aspirin; K59.09 Other constipation; I11.0 Hypertensive heart disease with heart failure; F03.90 Unspecified dementia, unspecified severity, without behavioral disturbance, psychotic disturbance, mood disturbance, and anxiety; R13.10 Dysphagia, unspecified
CPT/HCPCS: 36415; 36600; 70450-TC; 71045-TC; 74018; 75574; 80048-TC; 80053-TC; 80076-TC; 81000-TC; 82962-TC; 83605-TC; 83735-TC; 84100-TC; 84443-TC; 84484-TC; 85025-TC; 85730-TC; 87040-TC; 87081-TC; 87086-TC; 87186-TC; 92526; 92611-TC; 93307-TC; 94760-TC; 94799-TC; 97116-TC; 97530-TC; G0378; J0696; J1650; J1815; J1885; J1940; J2185; J2270; J2405; J2543; J3475; J3480; J3490; J7030; J7040; J7050; J7060; J8597; Q9967